=== PATIENT | female | born 1955 ===

== ENCOUNTER 2025-03-15 19:54 | Inpatient (IN) | payer MEDICARE ==
[~2025-03-15] VITALS: Ht 165.1 cm; Wt 48.1 kg
[2025-03-15 20:40] LABS: PLATELET COUNT (AUTO) 270 K/uL (179-408); RED BLOOD CELL COUNT(AUTO) 4.09 MIL/uL (3.63-4.92); RED CELL DISTRIBUTION WIDTH 13.1 % (12.3-17.7); WHITE BLOOD COUNT (AUTO) 6.1 K/uL (3.8-11.8)
[2025-03-15] MEDS ORDERED: MAGN400O6 PO (20:45)
[2025-03-15] MEDS ORDERED: MAGN30OR PO (20:45)
[2025-03-15] MEDS ORDERED: MULT-213 PO (20:45)
[2025-03-15] MEDS ORDERED: TEMA15CA PO (20:45)
[2025-03-15] MEDS ORDERED: HYDR50TA62 PO (20:45)
[2025-03-15] MEDS ORDERED: LEVE500T9 PO (20:45)
[2025-03-15] MEDS ORDERED: BISA10SU61 RC (20:45)
[2025-03-15] MEDS ORDERED: ACET-3117 PO (20:45)
[2025-03-15] MEDS ORDERED: RISP0.5T65 PO (20:45)
[2025-03-15] MEDS ORDERED: NA P133E RC (20:45)
[2025-03-15] MEDS ORDERED: ATOR20TA PO (20:45)
[2025-03-15] MEDS ORDERED: PSYL0.4C2 PO (20:45)
[2025-03-15] MEDS ORDERED: DOCU250C14 PO (20:45)
[2025-03-15] MEDS ORDERED: VALP250S4 PO (20:45)
[2025-03-15 20:54] LABS: ASPARTATE AMINOTRANSFERASE 50.0 U/L (15-37); CREATININE 0.5 mg/dL (0.6-1.3); SODIUM SERUM 142.0 mmol/L (136-145); TOTAL PROTEIN, SERUM 7.5 g/dL (6.4-8.2); UREA NITROGEN, BLOOD 15.0 mg/dL (7-18)
[2025-03-15 21:09] LABS: ETHANOL < 3 MG/DL (0-10)
[2025-03-15 22:00] VITALS: BP 141/70
[2025-03-16] MEDS ORDERED: LORAZEPAM 2 MG/1 ML VIAL IM ONE
[2025-03-16] MEDS ORDERED: LORAZEPAM 2 MG/1 ML VIAL ONE (00:04)
[2025-03-16] MEDS: LORAZEPAM 2 MG/1 ML VIAL IM ONE (00:11)
[2025-03-16] MEDS ORDERED: MAG HYDROX/AL HYDROX/SIMETH 30 ML LIQUID UDC PO PRN (00:30)
[2025-03-16] MEDS ORDERED: TEMAZEPAM 7.5 MG CAPSULE PO PRN ×2 (00:30)
[2025-03-16] MEDS ORDERED: LORAZEPAM 1 MG TABLET PO PRN ×2 (00:30)
[2025-03-16] MEDS ORDERED: ACETAMINOPHEN 325 MG TABLET PO PRN (00:30)
[2025-03-16] MEDS ORDERED: MAGNESIUM HYDROXIDE 30 ML LIQUID UDC PO PRN (00:30)
[2025-03-16] MEDS: BLOOD SUGAR DIAGNOSTIC 1 EACH STRIP VI ONE (01:23)
[2025-03-16 01:25] VITALS: BP 152/85; TEMP 97.3; O2SAT 96
[2025-03-16 07:51] LABS: GLUCOSE FASTING 89.0 mg/dL (70-115)
[2025-03-16 09:28] VITALS: BP 147/66; TEMP 98; O2SAT 99
[2025-03-16] MEDS ORDERED: ACET325T53 PO (10:19)
[2025-03-16] MEDS: DIVALPROEX SPRINKLE 125 MG CAP.SPRINK PO SCH (12:45)
[2025-03-16 15:31] VITALS: BP 96/54; TEMP 98; O2SAT 99
[2025-03-16 20:00] VITALS: BP 104/59; TEMP 98; O2SAT 100
[2025-03-16] MEDS: ATORVASTATIN 40 MG TABLET PO SCH (21:45)
[2025-03-17 08:27] LABS: VALPROIC ACID 8 ug/mL (50-100)
[2025-03-17] MEDS: DOCUSATE SODIUM 250 MG CAPSULE PO SCH (08:43)
[2025-03-17 09:20] VITALS: BP 111/62; TEMP 98; O2SAT 99
[2025-03-17] MEDS ORDERED: ZOLPIDEM 5 MG TABLET PO PRN (12:00)
[2025-03-17] MEDS: OXCARBAZEPINE 150 MG TABLET PO SCH (13:14)
[2025-03-17 15:51] VITALS: BP 105/55; TEMP 98; O2SAT 99
[2025-03-17 20:00] VITALS: BP 104/59; TEMP 98.1; O2SAT 97
[2025-03-17] MEDS: OLANZAPINE 2.5 MG TABLET PO SCH (20:49)
[2025-03-18 07:42] VITALS: BP 117/65; TEMP 98; O2SAT 99
[2025-03-18 16:12] VITALS: BP 100/58; TEMP 98; O2SAT 99
[2025-03-18 20:00] VITALS: BP 113/49; TEMP 97.9; O2SAT 100
[2025-03-19 08:27] VITALS: BP 112/61; TEMP 98; O2SAT 99
[2025-03-19 16:20] VITALS: BP 112/52; TEMP 98; O2SAT 99
[2025-03-19 20:18] VITALS: BP 118/39; TEMP 97.6; O2SAT 99
[2025-03-20 08:10] VITALS: BP 119/67; TEMP 98; O2SAT 99
[2025-03-20] MEDS: OLANZAPINE 5 MG TABLET PO SCH (11:00)
[2025-03-20] MEDS: OXCARBAZEPINE 150 MG TABLET PO SCH (14:00)
[2025-03-20 16:29] VITALS: BP 91/48; TEMP 98; O2SAT 99
[2025-03-20 19:55] VITALS: BP 105/49; TEMP 97.3; O2SAT 97
[2025-03-21 08:32] VITALS: BP 133/67; TEMP 98; O2SAT 99
[2025-03-21 16:27] VITALS: BP 130/69; TEMP 98; O2SAT 99
[2025-03-21 19:55] VITALS: BP 121/50; TEMP 97.4; O2SAT 99
[2025-03-22 09:15] VITALS: BP 93/64; TEMP 97.3; O2SAT 96
[2025-03-22 16:23] VITALS: BP 103/41; TEMP 98; O2SAT 98
[2025-03-22 20:00] VITALS: BP 131/63; TEMP 98.1; O2SAT 98
[2025-03-23 08:22] VITALS: BP 98/78; TEMP 98; O2SAT 98
[2025-03-23] MEDS: LORAZEPAM 0.5 MG TABLET PO ONE (09:17)
[2025-03-23] MEDS ORDERED: OLANZAPINE 10 MG VIAL IM PRN (11:45)
[2025-03-23 15:26] VITALS: BP 100/48; TEMP 98; O2SAT 98
[2025-03-23 19:44] VITALS: BP 101/52; TEMP 97.8; O2SAT 97
[2025-03-24 08:29] VITALS: BP 110/69; TEMP 98; O2SAT 99
[2025-03-24 15:12] VITALS: BP 122/63; TEMP 98.2; O2SAT 99
[2025-03-24 20:00] VITALS: BP 99/53; TEMP 97.2; O2SAT 99
[2025-03-25 09:02] VITALS: BP 106/65; TEMP 98.2; O2SAT 98
[2025-03-25 15:25] VITALS: BP 96/55; TEMP 98; O2SAT 98
[2025-03-25 20:00] VITALS: BP 118/61; TEMP 97.6; O2SAT 99
[2025-03-26 08:25] VITALS: BP 140/67; TEMP 98; O2SAT 98
[2025-03-26 16:46] VITALS: BP 99/43; TEMP 98; O2SAT 98
[2025-03-26 20:19] VITALS: BP 93/50; TEMP 97.5; O2SAT 97
[2025-03-27 08:36] VITALS: BP 120/61; TEMP 98; O2SAT 98
[2025-03-27 16:19] VITALS: BP 99/43; TEMP 98; O2SAT 98
[2025-03-27 19:47] VITALS: BP 101/52; TEMP 98; O2SAT 97
[2025-03-27] MEDS: OLANZAPINE 5 MG TABLET PO SCH (20:26)
[2025-03-27] MEDS ORDERED: OLANZAPINE 2.5 MG TABLET PO SCH (21:00)
[2025-03-28 08:57] VITALS: BP 131/66; TEMP 98; O2SAT 98
[2025-03-28] MEDS: OLANZAPINE 2.5 MG TABLET PO SCH (08:59)
== END 2025-03-28 14:30 | DRG 885 ==
LOC: ER 20:26 → GPS 03-16 00:01
PROVIDERS: ADMIT Psychiatry & Neurology Psychiatry; ATTEND Nurse Practitioner Acute Care
DX: F29 Unspecified psychosis not due to a substance or known physiological condition (principal); G93.41 Metabolic encephalopathy; F03.918 Unspecified dementia, unspecified severity, with other behavioral disturbance; I69.391 Dysphagia following cerebral infarction; G40.909 Epilepsy, unspecified, not intractable, without status epilepticus; R47.01 Aphasia; F03.93 Unspecified dementia, unspecified severity, with mood disturbance; F03.92 Unspecified dementia, unspecified severity, with psychotic disturbance; H54.8 Legal blindness, as defined in USA; R13.10 Dysphagia, unspecified; E78.5 Hyperlipidemia, unspecified; G47.00 Insomnia, unspecified; R74.01 Elevation of levels of liver transaminase levels; R26.2 Difficulty in walking, not elsewhere classified; Z86.011 Personal history of benign neoplasm of the brain; Z91.148 Patient's other noncompliance with medication regimen for other reason
CPT/HCPCS: 36415; 80164; 84443; 85025; 85730; G0480; J2060